=== PATIENT | female | born 1995 | race Caucasian/White ===

== ENCOUNTER 2023-05-11 10:12 | Emergency (ER) | payer OTHER ==
[~2023-05-11] VITALS: Ht 162.6 cm; Wt 79.0 kg
[2023-05-11 10:21] VITALS: BP 142/94; PULSE 77; RESP 20; TEMP 98; O2SAT 100
== END 2023-05-11 14:30 | disposition home or self-care (01) ==
LOC: ER 10:12
DX: S61.301A Unspecified open wound of left index finger with damage to nail, initial encounter (principal); J45.909 Unspecified asthma, uncomplicated; Z98.890 Other specified postprocedural states; W26.8XXA Contact with other sharp object(s), not elsewhere classified, initial encounter; Y93.89 Activity, other specified; Y92.89 Other specified places as the place of occurrence of the external cause; Y99.8 Other external cause status
CPT/HCPCS: 73140; 99283